=== PATIENT | female | born 1985 | race Caucasian/White ===

== ENCOUNTER 2017-04-20 00:44 | Inpatient (IN) ==
[2017-04-20] MEDS ORDERED: Vancomycin 1,250 MG in D5% in Water 250 ML IVPB STA (01:05)
--- NOTE | 2017-04-20 01:12 | Emergency Department Note ---
Disposition Clinical Impression: Abscess of hand Disposition: Admitted As Inpatient Condition: Good Referrals: Matias Ochoa MD [Primary Care Provider] - Forms: ED Satisfaction Letter Skin/Abscess/FB HPI Chief complaint: ED Skin/Abscess/Foreign Body Stated complaint: Abscess R Hand Time Seen by Provider: 04/20/17 00:57 Source: patient Limitations: no limitations Nursing Notes Reviewed: Yes Vital Signs Reviewed: Yes HPI Narrative: Patient presents for evaluation of right hand abscess. Patient states 3 days ago she was cutting a callus on her hand with some nail clippers. She states that the infections continued to get worse. Patient presents today secondary to the overall size and associated pain. Patient states that she has had one abscess on the left forearm prior. Mother states that she has a frequent history of cellulitis. Patient adamantly denies any IV drug use either now or previously. Mild chills but no overt fever. Previous Rx's Medication Instructions Recorded Benzonatate [Tessalon] 100 mg PO TID PRN #20 capsule 04/26/15 Levofloxacin [Levaquin] 500 mg PO DAILY #14 tablet 04/26/15 Clindamycin HCl [Cleocin HCl] 450 mg PO TID #32 cap 12/05/15 Naproxen [Naprosyn] 500 mg PO BID PRN #20 tablet 01/27/17 Allergies Allergy/AdvReac Type Severity Reaction Status Date / Time Penicillins AdvReac Hives Verified 04/20/17 00:50 Review of Systems: CONSTITUTIONAL: chills No weight loss, fever, weakness or fatigue. HEENT: Eyes: No visual changes. Ears, Nose, Throat: No hearing loss, difficulty talking or unable to swallow. SKIN: No rash or itching. CARDIOVASCULAR: No chest pain, chest pressure or chest discomfort. No palpitations or edema. RESPIRATORY: No shortness of breath, cough or sputum. GASTROINTESTINAL: No anorexia, nausea, vomiting or diarrhea. No abdominal pain or blood. GENITOURINARY: No burning on urination or hematuria. NEUROLOGICAL: No headache, dizziness, syncope, paralysis, ataxia, numbness or tingling in the extremities. No change in bowel or bladder control. MUSCULOSKELETAL: right hand pain Past Medical History - Past Medical History Medical history: Reports: no medical history Surgical history: Reports: Psychiatric history: Reports: anxiety, bipolar, depression - Social History Smoking Status: Current every day smoker Smokeless Tobacco Status: No Alcohol use: Reports: none Drug use: Reports: none Physical Exam General appearance: NAD, conversant Eyes: anicteric sclerae, moist conjunctivae; no lid-lag; PERRL HENT: Atraumatic; oropharynx clear with moist mucous membranes Neck: Normal appearance; Trachea midline Chest: Symmetrical chest rise; No respiratory distress Extremities: Right hand with significant abscess and swelling of the entirety of the palm. Patient swelling is starting to involve her fingers as well as her proximal wrist. Patient has range of motion at the wrist but limited range of motion to finger flexion or extension. Cap refill is less than 3 seconds. Sensation is intact in the distal fingers compared to the left. Skin: Normal temperature, turgor and texture; no rash, ulcers or subcutaneous nodules Psych: Appropriate mood and affect Neuro: Awake and alert - General Limitations: no limitations General appearance: alert, in no apparent distress Course - Reevaluation(s) Reevaluation #1: Discussed the severity of the case with the patient. The patient understands that she needs to go to the operating room. We will discuss with our hand surgeon at [facility] as she prefers to stay here. During her stay she has required pain medication as well as anxiety medication. Patient wants to go home to prepare her family for her hospitalization. After 1 dose of IV Ativan the patient uses her hand to do various tasks. Surprising given the amount of pain as well as impressive swelling. - Consultations Consultation #1: Discussed with Dr. Castle. Patient with low likelihood of compartment syndrome given sensation in fingers and symmetric cap refill. Patient will be able to be seen in the a.m. Patient should be given Zosyn and Vanc. Unfortunately the patient has a penicillin allergy that is hives. Patient given clindamycin instead. Consultation #2: Dr. No accepts. Requests urine drug screen. Pt received narcotics and benzo in the ED. No utility for obtaining at this time as she has already received the medications for acute pain and anxiety. Vital Signs Temperature 97.7 F 04/20/17 00:46 Pulse Rate 96 04/20/17 00:46 Respiratory Rate 20 04/20/17 00:46 Blood Pressure 127/76 04/20/17 00:46 O2 Sat by Pulse Oximetry 98 04/20/17 00:46 Temperature 97.7 F 04/20/17 00:46 Pulse Rate 86 04/20/17 03:27 Respiratory Rate 18 04/20/17 03:27 Blood Pressure 116/61 04/20/17 03:27 O2 Sat by Pulse Oximetry 95 04/20/17 03:27 Oxygen Delivery Oxygen Delivery Room Air Skin/Abscess/Foreign Body - Lab Data Result diagrams: 04/20/17 01:19 04/20/17 01:19 Lab Results 04/20/17 04/20/17 04/20/17 Range/Units 01:19 01:19 01:19 WBC 18.4 H (4.3-11.1) K/mcL RBC 4.06 (3.82-4.97) M/mcL Hgb 12.4 (11.5-15.4) g/dL Hct 37.8 (35.3-44.9) % MCV 93.1 (83.0-100.0) fL MCH 30.5 (28.0-33.3) pg MCHC 32.8 (31.6-35.5) g/dL RDW 13.1 (11.5-14.5) % Plt Count 165 (140-400) K/mcL MPV 12.7 H (9.4-12.4) fL Immature Gran % 0.4 (0-4) % Seg Neutrophils % 86.5 % Lymphocytes % 10.2 % Monocytes % 1.4 % Eosinophils % 1.0 % Basophils % 0.5 % Neutrophils # 15.9 H (1.6-8.9) K/mcL Lymphocytes # 1.9 (0.6-4.6) K/mcL Monocytes # 0.3 (0.0-1.3) K/mcL Eosinophils # 0.2 (0.0-0.6) K/mcL Basophils # 0.1 (0.0-0.2) K/mcL ESR 81 H (0-15) mm/hr Sodium 138 (136-145) mEq/L Potassium 3.5 (3.5-4.5) mEq/L Chloride 105 (98-109) mEq/L Carbon Dioxide 24 (19-29) mEq/L BUN 10 (7-20) mg/dL Creatinine 0.78 (0.57-1.11) mg/dL Est GFR ( Amer) > 60 (> 60) Est GFR (Non-Af Amer) > 60 (> 60) BUN/Creatinine Ratio 13 (6-26) Glucose 123 H (70-99) mg/dL Calculated Osmolality 286 (280-300) Lactic Acid (0.5-2.2) mmol/L Calcium 8.5 L (8.6-10.8) mg/dL Creatine Kinase 202 H (29-168) Units/L C-Reactive Protein 122 H (Less than 5) mg/L 04/20/ Range/Units 03:43 WBC (4.3-11.1) K/mcL RBC (3.82-4.97) M/mcL Hgb (11.5-15.4) g/dL Hct (35.3-44.9) % MCV (83.0-100.0) fL MCH (28.0-33.3) pg MCHC (31.6-35.5) g/dL RDW (11.5-14.5) % Plt Count (140-400) K/mcL MPV (9.4-12.4) fL Immature Gran % (0-4) % Seg Neutrophils % % Lymphocytes % % Monocytes % % Eosinophils % % Basophils % % Neutrophils # (1.6-8.9) K/mcL Lymphocytes # (0.6-4.6) K/mcL Monocytes # (0.0-1.3) K/mcL Eosinophils # (0.0-0.6) K/mcL Basophils # (0.0-0.2) K/mcL ESR (0-15) mm/hr Sodium (136-145) mEq/L Potassium (3.5-4.5) mEq/L Chloride (98-109) mEq/L Carbon Dioxide (19-29) mEq/L BUN (7-20) mg/dL Creatinine (0.57-1.11) mg/dL Est GFR ( Amer) (> 60) Est GFR (Non-Af Amer) (> 60) BUN/Creatinine Ratio (6-26) Glucose (70-99) mg/dL Calculated Osmolality (280-300) Lactic Acid 1.0 (0.5-2.2) mmol/L Calcium (8.6-10.8) mg/dL Creatine Kinase (29-168) Units/L C-Reactive Protein (Less than 5) mg/L
[2017-04-20 01:27] LABS: Basophils # 0.1 K/mcL (0.0-0.2); Basophils % 0.5 %; Eosinophils # 0.2 K/mcL (0.0-0.6); Hematocrit 37.8 % (35.3-44.9); Hemoglobin 12.4 g/dL (11.5-15.4); Immature Granulocytes % 0.4 % (0-4); Lymphocytes # 1.9 K/mcL (0.6-4.6); Lymphocytes % 10.2 %; Mean Corpuscular HGB Conc 32.8 g/dL (31.6-35.5); Mean Corpuscular Hemoglobin 30.5 pg (28.0-33.3); Mean Corpuscular Volume 93.1 fL (83.0-100.0); Mean Platelet Volume 12.7 fL (9.4-12.4); Monocytes # 0.3 K/mcL (0.0-1.3); Monocytes % 1.4 %; Neutrophils # 15.9 K/mcL (1.6-8.9); Platelet Count 165 K/mcL (140-400); Red Blood Count 4.06 M/mcL (3.82-4.97); Red Cell Distribution Width 13.1 % (11.5-14.5); Segmented Neutrophils % 86.5 %
[2017-04-20 01:38] LABS: BUN/Creatinine Ratio 13 (6-26); Blood Urea Nitrogen 10 mg/dL (7-20); Calcium 8.5 mg/dL (8.6-10.8); Carbon Dioxide 24 mEq/L (19-29); Chloride 105 mEq/L (98-109); Glucose 123 mg/dL (70-99); Osmolality,Calculated 286 (280-300); Potassium 3.5 mEq/L (3.5-4.5); Sodium 138 mEq/L (136-145); eGFR For African Americans > 60 (> 60); eGFR For Non-African Americans > 60 (> 60)
--- NOTE | 2017-04-20 02:00 | Emergency Department Note ---
START Narrative - START START: I examined this patient and my medical decision-making was reviewed with the Resident Physician. I agree with the documented findings, disposition and treatment plan as described except to the extent set forth below. 32 yaer old female with is right hand dominant states that she has had a callulus on her right palm below the 2nd and 3rd base of the fingers and that she tried to clip it with a dirty box nailer and now over the past three days is has grown and is increasingly worse and drainge with swelling to the rest of her hand and pain with passive range of motion in addition to streaking of redness down her hand and arm. strong radial pulse, it is difficult to assess cap refill because of her nail poilish, and had glitter lotion on her hand which she states is her makeup. She denies drug abuse and heorin use although it appears that she has track winchester along her forearm bilaterally, although she denies it. My concern is for a needle in her wound or other necrotic pathogens. We will do CT and consult hand surgery. We will start vanco at this time and be admitted to either medicne at our facility or be transferred to another facilty with hand surgery.
[2017-04-20] MEDS ORDERED: *HR* FentaNYL (PF) 100 MCG/2 ML VIAL IVP ONE (02:03)
[2017-04-20 02:16] LABS: C-Reactive Protein 122 mg/L (Less than 5); Creatine Kinase 202 Units/L (29-168)
[2017-04-20] MEDS ORDERED: *HR* LORazepam 2 MG/ML VIAL IVP ONE ×3 (02:40→05:15)
[2017-04-20] MEDS ORDERED: *HR* LORazepam 2 MG/ML VIAL ONE ×2 (02:42→05:16)
[2017-04-20] MEDS ORDERED: Clindamycin 900 MG/50 ML 900 MG/50 ML IV.SOLN IVPB ONE (03:24)
[2017-04-20] MEDS ORDERED: Haloperidol Lactate 5 MG/ML VIAL IVP ONE ×2 (05:14→05:31)
[2017-04-20] MEDS ORDERED: Haloperidol Lactate 5 MG/ML VIAL ONE ×2 (05:15→05:31)
[2017-04-20] MEDS ORDERED: Nicotine 21 MG PATCH.TD24 TD STA (05:15)
--- NOTE | 2017-04-20 05:25 | Emergency Department Note ---
START Narrative - START START: Patient threatening to leave the emergency department and come back later in the day. Due to the patient's severity of her injury she does need antibiotics and surgical evaluation for possible surgery as the progression of this could worsen causing compartment syndrome. Possibility of going home presents potential complication of loss of limb as well as disability. The patient is not able to make decisions at this time secondary to her severe anxiety. She does have a history of bipolar as well as depression. She states she has been tried on Haldol as well as lithium without improvement. At this time we will give her Haldol and Ativan. The patient is now pink slipped. Mother is at bedside in agreement with overall course and plan.
--- NOTE | 2017-04-20 08:37 | Orthopedic Consult Note ---
Date of Encounter: 04/20/17 Time of Encounter: 08:00 Assessment and Plan (1) Abscess of hand Current Visit: Yes Status: Acute Patient has a deep palmar abscess at the base of the right long finger. The patient will be taken to the operating room for an incision and drainage today. This was discussed patient and she understands. Informed consent was obtained. The patient was taken to rotate either by Dr. Dc or myself. History of Present Illness Chief complaint: Right hand infection HPI: Ms. Shore is a 32 year old [id number] female who presents to the emergency room last night with increased swelling and pain of her right hand. The patient was cutting a callus from the palm of right hand with nail clippers 3 days ago, and hand progressively got more red hot and swollen. It was not significantly yesterday. The patient denies any fevers or chills at home. There was some concern of the patient's mental status less than pressure 1 to leave AMA. The patient has 2 young boys at home alone and want to get back with them. She denies any history of drug abuse. No significant medical history for diabetes. Past Med Surg Social Fam HX - Past Medical History Medical history: no medical history Psychiatric history: anxiety, bipolar, depression - Past Surgical History Surgical History: - Social History Smoking Status: Current every day smoker Smokeless Tobacco Status: No Alcohol use: none Drug use: none Medications and Allergies Celexa 60 PO DAILY 04/20/17 [History] 3 Allergy/AdvReac Type Severity Reaction Status Date / Time Penicillins AdvReac Hives Verified 04/20/17 00:50 All Systems Reviewed: A 10-system review of systems was performed and is negative for pertinent findings except as documented above in the HPI. Physical Exam - Constitutional Vitals: Temp Pulse Resp BP Pulse Ox 97.7 F 88 18 122/74 92 04/20/17 00:46 04/20/17 04:37 04/20/17 04:37 04/20/17 04:37 04/20/17 04:37 General appearance IM: cooperative (The patient is somewhat drowsy secondary to medications, but she is arousable), A&O X 3, answers questions appropriately - Wrist & Hand right Location of pain: volar hand Wrist pain modifiers: with motion Wound/scarring location: Swelling on dorsum of hand. Signifi swelling on distal palm at base of LF Tenderness with palpation: volar hand (2 similar raised swelling this long finger, mild erythema, violaceous center. Compartments are soft. Able to passively flex the digits without significant pain. Sensation intact fingertips. Capillary refill less than 2 seconds. Radial pulse 2+. No streaking of erythema into foream.) Full ROM: wrist: yes Results - Labs Result Diagrams: 04/20/17 01:19 04/20/17 01:19 Labs: Abnormal lab results WBC 18.4 K/mcL (4.3-11.1) H 04/20/17 01:19 MPV 12.7 fL (9.4-12.4) H 04/20/17 01:19 Neutrophils # 15.9 K/mcL (1.6-8.9) H 04/20/17 01:19 ESR 81 mm/hr (0-15) H 04/20/17 01:19 Glucose 123 mg/dL (70-99) H 04/20/17 01:19 Calcium 8.5 mg/dL (8.6-10.8) L 04/20/17 01:19 Creatine Kinase 202 Units/L (29-168) H 04/20/17 01:19 C-Reactive Protein 122 mg/L (Less than 5) H 04/20/17 01:19 All other labs normal. Consult Discharge Plan - Plan Referrals: Matias Ochoa MD [Primary Care Provider] -
[2017-04-20] MEDS ORDERED: Mag Hydrox/Al Hydrox/Simeth 30 ML UDC PO PRN (08:38)
[2017-04-20] MEDS ORDERED: Ondansetron 4 MG/2 ML VIAL IVP PRN (08:38)
[2017-04-20] MEDS ORDERED: MOM Conc 10 ML UD.LIQ PO PRN (08:38)
[2017-04-20] MEDS ORDERED: Naloxone 0.4 MG/ML INJ IVP PRN (08:38)
[2017-04-20] MEDS ORDERED: Acetaminophen 325 MG TABLET PO PRN (08:38)
[2017-04-20] MEDS ORDERED: *HR* Morphine 2 MG/ML SYRINGE IVP PRN (08:42)
--- NOTE | 2017-04-20 08:44 | Internal Med History&Physical ---
Date of Encounter: 04/20/17 Time of Encounter: 07:45 Assessment and Plan (1) Abscess of right hand excluding fingers and thumb Current visit: Yes Status: Acute Pt with acute abscess R hand. IV Clinda and Vanc ordered. Plan is for OR later today. Pt is competent at this time to consent and understands the issues. Cultures pending. (2) Bipolar 1 disorder Current visit: Yes Status: Chronic Pt takes Celexa 60mg daily. Restarted today. She was pink slipped in ED last night but at this time I feel the patient is competent and understands risks/ benefits of her need for treatment. Will rescind the pink slip at this time. (3) Tobacco abuse Current visit: Yes Status: Chronic Cessation counselling. PRN Nicotine patch. Internal Medicine - H&P: HPI Admitted From: Emergency Dept Plans for Post Hospital Care: Home History of present illness: Ms. Shore is a 32 year old female with hx of bipolar disorder presented to ED last evening with swelling of R hand. 3 days prior she had worked on a callus on her hand with nail clippers. Area began to swell and became worse yesterday. In ED she was evaluated and admitted for further treatment. Apparently patient was agitated in ED and ultimately was given multiple medications and pink slipped. Currently she is somnolent but arousable. She is able to answer questions and appears to understand the gravity of her infection and the need to stay and go to OR. At this point I feel she is competent and willing to stay therefore I do not feel she need to be pink slipped anymore. She is currently high risk due to the need for IV abx and OR to debride abscess on her hand. Past Med Surg Social Fam HX - Past Medical History Source: patient Medical history: no medical history Psychiatric history: anxiety, bipolar, depression - Past Surgical History Surgical History: - Social History Smoking Status: Current every day smoker Smokeless Tobacco Status: No Alcohol use: none Drug use: none Current living situation: With Family Activity Level: Independent ambulation Internal Medicine - H&P: Meds Citalopram Hydrobromide [Citalopram HBr] 40 mg PO DAILY 04/20/17 [History] 3 Allergy/AdvReac Type Severity Reaction Status Date / Time Penicillins Allergy Hives Verified 04/20/17 08:45 All Systems PM: A 10-system review of systems was performed and is negative for pertinent findings except as documented above in the HPI. - Constitutional Constitutional: as per HPI, no chills, no fever(s) - EENT Eyes: no dry eye, no loss of peripheral vision, no pain Ears: no decreased hearing Nose, mouth and throat: dry mouth, no mouth lesions, no nasal obstruction, no sinus pain - Cardiovascular Cardiovascular ROS IM: no chest pain, no dyspnea, no dyspnea on exertion, no palpitations - Respiratory Respiratory: no dyspnea, no dyspnea on exertion, no chest congestion, no pain with cough - Gastrointestinal Gastrointestinal: no abdominal pain, no cramping, no diarrhea, no hematochezia, no melena - Genitourinary Genitourinary: no dysuria, no urinary hesitancy, no urinary incontinence, no urinary urgency - Musculoskeletal Musculoskeletal ROS IM: other, no arthralgias Additional comments: R hand swollen - Integumentary Integumentary IM: as per HPI, new lesions - Neurological Neurological ROS: no abnormal gait, no dizziness, no loss of vision - Psychiatric Psychiatric: anxiety, depression, mood swings - Endocrine Endocrine IM: no cold intolerance, no heat intolerance - Hematologic/Lymphatic Hematologic/Lymphatic: no easy bleeding - Allergic/Immunologic Allergic/Immunologic: no throat swelling, no itchy eyes - Constitutional Vitals: Temp Pulse Resp BP Pulse Ox 97.7 F 88 18 122/74 92 04/20/17 00:46 04/20/17 04:37 04/20/17 04:37 04/20/17 04:37 04/20/17 04:37 General appearance: Present: A&O X 3, answers questions appropriately Exam: Somnolent still but able to answer questions appropriately. - Head Head exam: Present: atraumatic, normocephalic - Eye Eye exam: Present: EOMI, PERRL, conjuntiva pink - ENT ENT exam: Present: mucous membranes dry - Neck Neck exam general surgery: Absent: lymphadenopathy, thyromegaly - Respiratory Respiratory exam: Present: decreased breath sounds, CTAB - Cardiovascular Cardiovascular exam: Present: RRR. Absent: systolic murmur, tachycardia - GI/Abdominal GI/Abdominal exam: Present: normal bowel sounds, soft. Absent: mass, tenderness - Extremities Exam Extremities exam: Present: normal capillary refill, radial pulses palpable and symmetrical Additional comments: R hand swollen and erythematous. Large abscess area present on the palm of her hand. Painful to touch. Able to move fingers. No numbness. Pulses palpable bilaterally. - Neurological Exam Neurological exam: Present: alert, oriented X3 - Psychiatric Psychiatric exam: Present: anxious - Skin Skin exam: Present: dry, erythema, warm Internal Med - H&P Results - Labs CBC & Chem 7: 04/20/17 01:19 04/20/17 01:19
[2017-04-20] MEDS ORDERED: Vancomycin 1,250 MG in D5% in Water 250 ML IVPB SCH (09:00)
[2017-04-20] MEDS ORDERED: Lidocaine -MPF 2% 2 ML VIAL ONE (10:10)
[2017-04-20] MEDS ORDERED: *HR* Midazolam HCl 2 MG/2 ML VIAL ONE (10:10)
[2017-04-20] MEDS ORDERED: Dexamethasone 4 MG/ML VIAL ONE (10:10)
[2017-04-20] MEDS ORDERED: Ondansetron 4 MG/2 ML VIAL ONE (10:10)
[2017-04-20] MEDS ORDERED: *HR* Propofol 200 MG/20 ML VIAL IVP ONE (10:10)
[2017-04-20] MEDS ORDERED: *HR* FentaNYL (PF) 100 MCG/2 ML VIAL ONE (10:10)
--- NOTE | 2017-04-20 10:35 | Anesthesia Evaluation PreOp ---
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: Other (anxiety, bipolar, depression) Other Medical History: Denies Any Significant HX Anesthesia History: No Prior Anesthetic Complications, Past Anesthesia (c/s) : No Test: Negative (04/20/2017) Alcohol Use: none Drug use: none Medications and Allergies Citalopram Hydrobromide [Citalopram HBr] 40 mg PO DAILY 04/20/17 [History] 3 Allergy/AdvReac Type Severity Reaction Status Date / Time Penicillins Allergy Hives Verified 04/20/17 08:45 - Meds/Allergy Pre-op Review Medications Reviewed: Yes Allergies Reviewed: Yes Beta Blockers on Current Med List: No Anesthesia Results - Labs 04/20/17 01:19 04/20/17 01:19 Laboratory Tests 04/08/14 19:33 Urine Opiates Screen Positive H U Benzodiazepines Scrn Positive H U Marijuana (THC) Screen Positive H Anesthesia Exam O2 Sat Height 1.63 m Weight 79.379 kg O2 Sat by Pulse Oximetry 96 O2 Sat by Pulse Oximetry 92 O2 Sat by Pulse Oximetry 95 O2 Sat by Pulse Oximetry 98 O2 Sat by Pulse Oximetry 98 Vital Signs Temp Pulse Resp BP Pulse Ox 97.7 F 96 20 127/76 98 04/20/17 00:46 04/20/17 00:46 04/20/17 00:46 04/20/17 00:46 04/20/17 00:46 Vital Signs/O2 Sat, Most Current Temp Pulse Resp BP Pulse Ox 97.7 F 79 17 112/69 96 04/20/17 09:02 04/20/17 09:02 04/20/17 09:02 04/20/17 09:02 04/20/17 09:02 Height: 5'4'' Weight: 175# NPO (# of Hours): > 8 nrs Pain Scale: 0 Pain Scale Used: Numeric (1 - 10) (.) - HEENT Pupil (Motor): Pupils equal, EOMI Mallampati: II Teeth: Normal Oral Opening: Greater than 3 - FACILITIES AND GROUNDS DIRECTOR LOC: Oriented FACILITIES AND GROUNDS DIRECTOR Motor: Normal RUE, Normal LUE, Normal RLE, Normal LLE, Normal Face [employer]ITIES AND GROUNDS DIRECTOR Sensory: Normal: RUE, LUE, RLE, LLE, Face - Cardiac Rhythm: Regular Murmur: None JVD: No Carotid Bruit: No - Pulmonary Breath Sounds: bilateral Clear Respiratory Effort: Symmetrical Anesthesia Assess/Plan ASA Score: 3 Modified [place] Scale for Level of Consciousness: Cooperative, oriented, and tranquil Anesthetic Plan: General Autologous Blood: Yes Monitoring Plan: Standard Monitors Recovery Plan: PACU
[2017-04-20] MEDS ORDERED: Albuterol 2.5 MG/3 ML NEBULIZER ONE (10:47)
[2017-04-20] MEDS ORDERED: Albuterol 2.5 MG/3 ML NEBULIZER IH ONE (10:48)
[2017-04-20] MEDS ORDERED: Lidocaine -MPF 4% 5 ML AMPUL ONE (10:49)
[2017-04-20] MEDS ORDERED: *HR* Succinylcholine 200 MG/10 ML VIAL IVP ONE (11:06)
--- NOTE | 2017-04-20 11:06 | Orthopedics Progress Note ---
Date of Encounter: 04/20/17 Time of Encounter: 11:04 Subjective Interval history: S: Resting in bed. Pain controlled to the right hand. O: Afebrile and vital signs are stable Inspection shows a large subcutaneous abscess on the palm just proximal to the long finger with overlying skin necrosis Tenderness to palpation in this area She can grossly flex and extend the digits The digits are sensate and well-perfused. A: Right hand abscess P: The recommendation is for I&D of the right hand in order to drain the infection. She did wish to proceed and consent has been obtained. Objective - Labs CBC & BMP: 04/20/17 01:19 04/20/17 01:19 Labs: Abnormal lab results WBC 18.4 K/mcL (4.3-11.1) H 04/20/17 01:19 MPV 12.7 fL (9.4-12.4) H 04/20/17 01:19 Neutrophils # 15.9 K/mcL (1.6-8.9) H 04/20/17 01:19 ESR 81 mm/hr (0-15) H 04/20/17 01:19 Glucose 123 mg/dL (70-99) H 04/20/17 01:19 Calcium 8.5 mg/dL (8.6-10.8) L 04/20/17 01:19 Creatine Kinase 202 Units/L (29-168) H 04/20/17 01:19 C-Reactive Protein 122 mg/L (Less than 5) H 04/20/17 01:19 Consult Discharge Plan - Plan Referrals: Matias Ochoa MD [Primary Care Provider] -
--- NOTE | 2017-04-20 11:41 | Orthopedic Operative Note ---
Date of procedure: 04/20/17 Procedure: OPERATIVE REPORT DATE OF PROCEDURE: 04/20/2017 SURGEON: Ramana Holm MD COVER OPERATOR(S): There are no assistants PREOPERATIVE DIAGNOSIS: Right hand abscess POSTOPERATIVE DIAGNOSIS: Right hand abscess PROCEDURE: Incision, drainage, irrigation, debridement of the right hand ANESTHESIA: And general anesthesia PREOPERATIVE ANTIBIOTICS: Vancomycin and clindamycin on the floor ESTIMATED BLOOD LOSS: 2 milliliters TOURNIQUET TIME: 8 minutes at 250 mmHg SPECIMENS: Pin swabs sent for aerobic and anaerobic cultures PREOPERATIVE NOTE AND INDICATIONS: This patient has a three-day history of a right hand infection developing into an abscess. She is admitted to the hospitalist. Recommendation was for drainage of the abscess to help treat the infection. The surgical plan was discussed with the patient. The risks, benefits, alternatives, and potential complications of this procedure were discussed with the patient including injury to veins, arteries, nerves, tendons, ligaments, and bone. Also discussed were the risks of infection, bleeding, pain, blood clots, the possible need for a blood transfusion, the possible need for further procedures, heart attack, stroke, and . All of this was explained in simple terms, and the patient verbalized understanding and wished to proceed. Consent was given to proceed with surgery. PROCEDURE: The patient was seen in the preoperative holding area where the identify and the consent were confirmed. The right hand was marked. Final questions were answered. The patient was brought back to the operating room and placed supine on the operating room table. A huddle was performed with the patient and all vital surgical team members confirming patient identity, the correct procedure, and the correct operative site. General anesthesia was administered. The right upper extremity was prepped and draped in the usual sterile fashion. A surgical time out was performed immediately preceding the incision with all personnel in the operating room to confirm patient identity, the correct operative site and extremity, correct radiographic studies, availability of appropriate surgical equipment, and agreement on the planned procedure. Was elevated and the tourniquet was inflated without exsanguination. An oblique incision was made over the abscess and this immediately decompressed copious amounts of grossly purulent material. This was swabbed for aerobic and anaerobic cultures. The necrotic margins of the skin were sharply excised. The infection did spread down deep to the flexor tendon sheath and necrotic fat was sharply excised. The flexor tendon sheath was opened and there is not any purulent material within. 3 L of fluid were copiously irrigated through the wound and the tourniquet was deflated. The wound was then packed open with quarter-inch iodoform packing. The instrument, sponge, and needle counts were correct after wound closure. POST OPERATIVE PLAN: Weight Bearing: Weightbearing as tolerated to the right upper extremity. DVT Prophylaxis: Ambulation Activity: Avoiding aggressive activities with right upper extremity. Wound Care: Daily dressing and packing changes Pain Control: Per the hospitalist Perioperative antibiotic prophylaxis: Maintain IV broad spectrum antibiotics until cultures guide further Follow Up: One week
[2017-04-20] MEDS ORDERED: *HR* HYDROmorphone 2 MG/ML SYRINGE ONE (11:46)
[2017-04-20] MEDS ORDERED: Ketorolac 30 MG/ML VIAL IVP ONE (11:54)
[2017-04-20] MEDS ORDERED: *HR* HYDROmorphone (PF) 1 MG/ML SYRINGE IVP PRN (11:54)
[2017-04-20] MEDS ORDERED: Acetaminophen IV 1,000 MG/100 ML INFUS..BTL IVPB ONE (11:56)
[2017-04-20] MEDS ORDERED: Ringers Solution, Lactated 1,000 ML IVC SCH (12:00)
[2017-04-20] MEDS ORDERED: Acetaminophen IV 1,000 MG/100 ML INFUS..BTL ONE (12:07)
[2017-04-20] MEDS ORDERED: Naloxone 0.4 MG/ML INJ IVP ONE (13:18)
[2017-04-20] MEDS: Naloxone 0.4 MG/ML INJ IVP PRN ×3 (13:27→13:42)
[2017-04-20] MEDS: 0.9 % Sodium Chloride 1,000 ML IVC SCH (15:04)
[2017-04-20] MEDS: Vancomycin 1,000 MG in D5% in Water 250 ML IVPB SCH (15:05)
[2017-04-20] MEDS: Clindamycin 600 MG/50 ML 600 MG/50 ML IV.SOLN IVPB SCH (16:29)
[2017-04-21] MEDS: Clindamycin 600 MG/50 ML 600 MG/50 ML IV.SOLN IVPB SCH ×3 (00:10→16:43)
[2017-04-21] MEDS: Vancomycin 1,000 MG in D5% in Water 250 ML IVPB SCH ×2 (02:01→14:01)
[2017-04-21 06:25] LABS: Mean Corpuscular HGB Conc 32.7 g/dL (31.6-35.5); Mean Corpuscular Hemoglobin 30.3 pg (28.0-33.3); Mean Corpuscular Volume 92.4 fL (83.0-100.0); Mean Platelet Volume 13.1 fL (9.4-12.4); Platelet Count 118 K/mcL (140-400); Red Blood Count 3.57 M/mcL (3.82-4.97); Red Cell Distribution Width 13.2 % (11.5-14.5)
[2017-04-21 06:26] LABS: Hemoglobin 10.8 g/dL (11.5-15.4)
[2017-04-21 06:35] LABS: BUN/Creatinine Ratio 8 (6-26); Calcium 8.1 mg/dL (8.6-10.8); Carbon Dioxide 24 mEq/L (19-29); Chloride 106 mEq/L (98-109); Glucose 79 mg/dL (70-99); Magnesium 1.9 mg/dL (1.6-2.6); Osmolality,Calculated 280 (280-300); Sodium 137 mEq/L (136-145); eGFR For African Americans > 60 (> 60); eGFR For Non-African Americans > 60 (> 60)
[2017-04-21 06:36] LABS: Blood Urea Nitrogen 5 mg/dL (7-20)
[2017-04-21 06:37] LABS: Potassium 3.7 mEq/L (3.5-4.5)
[2017-04-21] MEDS: Nicotine 21 MG PATCH.TD24 TD SCH ×2 (07:42→20:01)
[2017-04-21] MEDS: 0.9 % Sodium Chloride 1,000 ML IVC SCH (08:11)
--- NOTE | 2017-04-21 08:36 | Orthopedics Progress Note ---
Date of Encounter: 04/21/17 Time of Encounter: 08:34 Subjective Interval history: S: Resting in bed. Pain controlled to the right hand. O: Afebrile and vital signs are stable Dressings taken down and the packing removed. No gross purulence. Wound looks good. Moderate swelling to the hand She could grossly flex and extend the digits with limitation due to pain and swelling. The fingertips are all grossly sensate and well-perfused, and the radial artery pulse is 2+. A: Right hand abscess; postop day 1 after I&D P: Continue IV antibiotics for another 24 hours Continue elevation and daily dressing and packing changes. Work on motion exercises of the digits to reduce the risk of stiffness Objective Vital signs: Vital Signs Temp Pulse Resp BP Pulse Ox 04/21/17 04:07 99.4 F 90 17 98/49 93 04/21/17 00:43 98.9 F 86 17 101/63 94 04/20/17 20:09 98.7 F 91 18 131/70 96 04/20/17 17:30 97.6 F 78 16 105/67 94 04/20/17 16:20 98.4 F 71 15 105/64 98 04/20/17 15:13 97.3 F L 71 15 96/61 97 04/20/17 14:29 97.8 F 73 14 100/66 96 04/20/17 14:02 97.7 F 77 18 97/62 96 04/20/17 13:52 85 16 105/64 99 04/20/17 13:42 97.7 F 72 12 94/55 96 04/20/17 13:32 76 16 114/49 97 04/20/17 13:22 81 14 109/45 95 04/20/17 13:12 97.5 F L 78 16 100/54 96 04/20/17 13:02 82 16 105/61 97 04/20/17 12:52 81 14 105/76 96 04/20/17 12:42 97.8 F 86 16 104/59 97 04/20/17 12:32 86 16 110/66 95 04/20/17 12:22 85 16 110/68 93 04/20/17 12:12 99.0 F 86 14 104/60 95 04/20/17 12:02 85 14 117/68 95 04/20/17 11:52 86 16 100/69 92 04/20/17 11:42 98.2 F 104 18 107/76 95 Intake and Output 04/20/17 04/21/17 04/21/17 23:59 07:59 15:59 Intake Total 300 / 300 300 / 300 1000 / 1000 Output Total 500 / 500 500 / 500 Balance -200 / -200 300 / 300 500 / 500 Intake: IV Fluids 300 / 300 300 / 300 1000 / 1000 0.9 % Sodium Chloride 1,000 ML 1000 / 1000 @ 75 mls/hr IVC .[id number] [facility]EE[facility]N Rx #:[id number] Cleocin Premix 600 MG/50 ML 600 50 / 50 50 / 50 mg In 50 ml @ 50 mls/hr IVPB Q8HR KEENAN Rx#:[id number] Vancocin 1,000 MG In Dextrose 5 250 / 250 250 / 250 % 250 ML @ 167 mls/hr IVPB Q12H KEENAN Rx#:[id number] Output: Urine 500 / 500 500 / 500 - Labs CBC & BMP: 04/21/17 06:13 04/21/17 06:13 Labs: Abnormal lab results WBC 12.6 K/mcL (4.3-11.1) H 04/21/17 06:13 RBC 3.57 M/mcL (3.82-4.97) L 04/21/17 06:13 Hgb 10.8 g/dL (11.5-15.4) L D 04/21/17 06:13 Hct 33.0 % (35.3-44.9) L 04/21/17 06:13 Plt Count 118 K/mcL (140-400) L 04/21/17 06:13 MPV 13.1 fL (9.4-12.4) H 04/21/17 06:13 Neutrophils # 15.9 K/mcL (1.6-8.9) H 04/20/17 01:19 ESR 81 mm/hr (0-15) H 04/20/17 01:19 BUN 5 mg/dL (7-20) L 04/21/17 06:13 Calcium 8.1 mg/dL (8.6-10.8) L 04/21/17 06:13 Creatine Kinase 202 Units/L (29-168) H 04/20/17 01:19 C-Reactive Protein 122 mg/L (Less than 5) H 04/20/17 01:19 - VTE Documentation of Mechanical Device: Intermittent pneumatic compression device Consult Discharge Plan - Plan Referrals: Matias Ochoa MD [Primary Care Provider] -
[2017-04-21] MEDS: Ketorolac 30 MG/ML VIAL IVP PRN ×2 (09:41→20:23)
--- NOTE | 2017-04-21 10:46 | Internal Med Progress Note ---
Date of Encounter: 04/21/17 Time of Encounter: 10:44 - Assessment and plan (1) Abscess of right hand excluding fingers and thumb Current Visit: Yes Status: Acute Assessment and plan: POD #1 s/p I&D ortho on board and consultation appreciated continue IV abx pain control IV fluids (2) Right ankle injury Current Visit: Yes Status: Acute Assessment and plan: Ankle Xray reported avulsion injury adjacent to lateral malleolus and lateral talus with associated soft tissue swelling ortho follow up requested supportive care (Rest, ICE, comprresion, elevation) pain control Qualifiers: Encounter type: initial encounter Qualified Code(s): S99.911A - Unspecified injury of right ankle, initial encounter (3) Bipolar 1 disorder Current Visit: Yes Status: Chronic Assessment and plan: continue home meds (4) Tobacco abuse Current Visit: Yes Status: Chronic Assessment and plan: smoking cessation and nicotine supplementation therapy provided - Subjective Interval history: Patient seen and examined at bedside. Resting in bed and reports of pain being appropriately controlled with the pain medications. Reports of twisting her right foot/ankle prior to her hospitalization. Ankle Xray reported avulsion injury adjacent to lateral malleolus and lateral talus with associated soft tissue swelling. - Constitutional Vitals: Temp Pulse Resp BP Pulse Ox 98.7 F 77 15 97/67 92 04/21/17 08:44 04/21/17 08:44 04/21/17 08:44 04/21/17 08:44 04/21/17 08:44 General appearance: Present: A&O X 3, no acute distress, obese, answers questions appropriately - Head Head exam: Present: atraumatic, normocephalic - Eye Eye exam: Present: conjuntiva pink, sclera anicteric - Respiratory Respiratory exam: Present: CTAB. Absent: accessory muscle use, rales, rhonchi, wheezes - Cardiovascular Cardiovascular exam: Present: RRR, +S1, +S2. Absent: diastolic murmur, gallop, rubs, systolic murmur - GI/Abdominal GI/Abdominal exam: Present: normal bowel sounds, soft, no peritoneal signs. Absent: distended, tenderness - Extremities Exam Extremities exam: Present: warm, radial pulses palpable and symmetrical. Absent : calf tenderness, cyanotic, pedal edema Additional comments: right hand dressing intact right ankle edema noted at the site of injury - Neurological Exam Neurological exam: Present: alert, oriented X3 - Psychiatric Psychiatric exam: Present: normal affect, normal mood Internal Medicine: Result - Labs CBC & Chem 7: 04/21/17 06:13 04/21/17 06:13 Labs: Short CBC 04/21/17 Range/Units 06:13 WBC 12.6 H (4.3-11.1) K/mcL Hgb 10.8 L D (11.5-15.4) g/dL Hct 33.0 L (35.3-44.9) % Plt Count 118 L (140-400) K/mcL BMP 04/21/17 06:13 Sodium 137 Potassium 3.7 Chloride 106 Carbon Dioxide 24 BUN 5 L Creatinine 0.63 Glucose 79 Calcium 8.1 L - Impressions Impressions Ankle X-Ray 04/21/17 07:54 IMPRESSION: Small acute avulsion injury adjacent to the lateral malleolus and lateral talus. Associated soft tissue swelling. D/ / 04/21/2017 10:02:17 Albert Gil MD / aKtarina Duffy Interpreting Provider: Albert Gil MD - VTE Documentation of Mechanical Device: Intermittent pneumatic compression device Consult Discharge Plan - Plan Referrals: Matias Ochoa MD [Primary Care Provider] -
[2017-04-22] MEDS: *HR* OxyCODONE Immed Rel 5 MG TABLET PO PRN ×2 (01:03→07:43)
[2017-04-22] MEDS: Clindamycin 600 MG/50 ML 600 MG/50 ML IV.SOLN IVPB SCH ×2 (01:03→08:33)
[2017-04-22 01:08] LABS: Basophils % 0.4 %; Eosinophils # 0.2 K/mcL (0.0-0.6); Eosinophils % 2.1 %; Hematocrit 32.1 % (35.3-44.9); Hemoglobin 10.6 g/dL (11.5-15.4); Immature Granulocytes % 0.5 % (0-4); Lymphocytes # 1.9 K/mcL (0.6-4.6); Mean Corpuscular Hemoglobin 30.5 pg (28.0-33.3); Mean Corpuscular Volume 92.2 fL (83.0-100.0); Mean Platelet Volume 13.4 fL (9.4-12.4); Monocytes # 0.5 K/mcL (0.0-1.3); Monocytes % 6.6 %; Neutrophils # 5.6 K/mcL (1.6-8.9); Platelet Count 115 K/mcL (140-400); Red Blood Count 3.48 M/mcL (3.82-4.97); Red Cell Distribution Width 13.2 % (11.5-14.5); Segmented Neutrophils % 67.4 %
[2017-04-22 01:28] LABS: BUN/Creatinine Ratio 14 (6-26); Blood Urea Nitrogen 8 mg/dL (7-20); Calcium 8.2 mg/dL (8.6-10.8); Carbon Dioxide 23 mEq/L (19-29); Chloride 109 mEq/L (98-109); Glucose 76 mg/dL (70-99); Magnesium 1.8 mg/dL (1.6-2.6); Osmolality,Calculated 283 (280-300); Phosphorous 3.3 mg/dL (2.3-4.7); Potassium 3.6 mEq/L (3.5-4.5); Sodium 138 mEq/L (136-145); eGFR For African Americans > 60 (> 60); eGFR For Non-African Americans > 60 (> 60)
[2017-04-22] MEDS ORDERED: Vancomycin 1,250 MG in D5% in Water 250 ML IVPB SCH (02:00)
[2017-04-22] MEDS: Ketorolac 30 MG/ML VIAL IVP PRN (04:56)
[2017-04-22 07:32] VITALS: BP 142/92
--- NOTE | 2017-04-22 07:50 | Orthopedics Progress Note ---
Date of Encounter: 04/22/17 Time of Encounter: 07:48 Subjective Interval history: S: Resting in bed. Pain controlled to the right hand. O: Afebrile and vital signs are stable Dressings taken down and the packing removed. No gross purulence. Wound looks good. Moderate swelling to the hand She could grossly flex and extend the digits with limitation due to pain and swelling. The fingertips are all grossly sensate and well-perfused, and the radial artery pulse is 2+. X-rays of ankle show sprain equivalent Cultures growing S. Aureus. A: Right hand abscess; postop day 2 after I&D P: Orthopedically stable for discharge Continue elevation and daily dressing and packing changes. Walking boot for the right lower extremity. Work on motion exercises of the digits to reduce the risk of stiffness Follow up in 1 week after discharge for wound check. Objective Vital signs: Vital Signs Temp Pulse Resp BP Pulse Ox 04/22/17 07:31 98.2 F 66 14 142/92 97 04/22/17 04:29 98.6 F 64 16 110/71 98 04/22/17 00:17 98.1 F 69 14 117/73 95 04/21/17 19:46 97.9 F 66 18 135/77 96 04/21/17 17:17 98.8 F 71 16 120/67 93 04/21/17 08:44 98.7 F 77 15 97/67 92 Intake and Output 04/21/17 04/21/17 04/22/17 15:59 23:59 07:59 Intake Total 1050 / 1050 300 / 300 150 / 150 Output Total 1200 / 1200 Balance -150 / -150 300 / 300 150 / 150 Intake: IV Fluids 1050 / 1050 300 / 300 0.9 % Sodium Chloride 1,000 ML 1000 / 1000 @ 75 mls/hr IVC .[id number] [facility] Rx #:[id number] Cleocin Premix 600 MG/50 ML 600 50 / 50 50 / 50 mg In 50 ml @ 50 mls/hr IVPB Q8HR [facility]EENAN Rx#:[id number] Vancocin 1,000 MG In Dextrose 5 250 / 250 % 250 ML @ 167 mls/hr IVPB Q12H [facility]EENAN Rx#:[id number] Oral 150 / 150 Output: Urine 1200 / 1200 Other: Meal Breakfast Percent of Meal Consumed 40% # Voids 1 1 2 # Urine Diapers 3 - Labs CBC & BMP: 04/22/17 00:53 04/22/17 00:53 Labs: Abnormal lab results RBC 3.48 M/mcL (3.82-4.97) L 04/22/17 00:53 Hgb 10.6 g/dL (11.5-15.4) L 04/22/17 00:53 Hct 32.1 % (35.3-44.9) L 04/22/17 00:53 Plt Count 115 K/mcL (140-400) L 04/22/17 00:53 MPV 13.4 fL (9.4-12.4) H 04/22/17 00:53 ESR 81 mm/hr (0-15) H 04/20/17 01:19 Calcium 8.2 mg/dL (8.6-10.8) L 04/22/17 00:53 Creatine Kinase 202 Units/L (29-168) H 04/20/17 01:19 C-Reactive Protein 122 mg/L (Less than 5) H 04/20/17 01:19 Vancomycin Trough 7.0 mcg/mL (10-20) L 04/22/17 00:53 - VTE Documentation of Mechanical Device: Intermittent pneumatic compression device Consult Discharge Plan - Plan Referrals: Matias Ochoa MD [Primary Care Provider] -
--- NOTE | 2017-04-22 11:17 | Discharge Summary ---
Date of Encounter: 04/22/17 Time of Encounter: 10:15 - Discharge Diagnosis (1) Abscess of right hand excluding fingers and thumb Priority: Primary Status: Acute (2) Right ankle injury Priority: Secondary Status: Acute Qualifiers: Encounter type: initial encounter Qualified Code(s): S99.911A - Unspecified injury of right ankle, initial encounter (3) Bipolar 1 disorder Priority: Secondary Status: Chronic (4) Tobacco abuse Priority: Secondary Status: Chronic - Discharge Medications Prescriptions: Clindamycin HCl [Cleocin HCl] 300 mg PO TID #21 cap Docusate [Colace] 100 mg PO BID PRN #20 capsule PRN Reason: Constipation HYDROcodone/Acet 5/325 mg [Dubberly 5-325 mg] 1 tab PO Q6H PRN #20 tab PRN Reason: moderate to severe pain Home Medications: Citalopram Hydrobromide [Citalopram HBr] 40 mg PO DAILY 04/20/17 [History] Clindamycin HCl [Cleocin HCl] 300 mg PO TID #21 cap 04/22/17 [Rx] Docusate [Colace] 100 mg PO BID PRN #20 capsule 04/22/17 [Rx] HYDROcodone/Acet 5/325 mg [Dubberly 5-325 mg] 1 tab PO Q6H PRN #20 tab 04/22/17 [Rx ] Allergies/Adverse Reactions: 3 Allergy/AdvReac Type Severity Reaction Status Date / Time Penicillins Allergy Hives Verified 04/20/17 08:45 Date of admission: 04/20/17 09:11 Primary care physician: Matias Ochoa MD Consults: 04/20/17 10:31 Consult to Ethanol Operations Manager [CONS] Routine Reason for SW Consult: discharge planning Discharging clinician: Miguelina Waite Anticipated date of discharge: 04/22/17 - Patient Status Disposition: Home, Self-Care Condition: Good Functional capacity at discharge: independent ambulation Overall status at discharge: patient is back to baseline - Discharge Instructions Follow Up With: Ramana Holm MD [Partnered Physician] - 04/26/17 3:30 pm Additional Instructions: Please follow up with your primary care physician and orthopedic surgery within one week after your discharge from the hospital. continue oral antibiotics as prescribed with meals. (Clindamycin may cause severe diarrhea, if this occurs, please stop using clindamycin and seek medical help immediately) Change dressing daily. resume home medications as prescribed by your primary care physician. - Diet and Activity Activity: resume usual activities as tolerated Diet: advance to your usual diet Hospital course: Ms. Shore is a 32 year old female with PMH of bipolar disorder who was admitted for management of right hand abscess and right ankle injury. She was seen by orthopedic surgery and underwent Incision, drainage, irrigation, debridement of the right hand. She was started on empiric abx therapy. she tolerated the procedure well and improved with abx therapy. Her leukocytosis resolved, pain is better controlled. Wound cultures are positive for MRSA sensitive to clindamycin. AT this time patient is hemodynamically stable. She will be discharged to home with oral antibiotics and follow up with orthopedic surgery and pcp. she state she will be able to do her dressing changes by herself and refused any additional home health services. She will receive a walking boot for right lower extremity prior to discharge. - Time Spent with Patient Total time spent providing and/or coordinating discharge services: Less than 30 minutes - Constitutional Vitals: Temp Pulse Resp BP Pulse Ox 98.2 F 66 14 142/92 97 04/22/17 07:31 04/22/17 07:31 04/22/17 07:31 04/22/17 07:31 04/22/17 07:31 General appearance: Present: A&O X 3, no acute distress, obese, answers questions appropriately - Head Head exam: Present: atraumatic, normocephalic - Eye Eye exam: Present: conjuntiva pink, sclera anicteric - Respiratory Respiratory exam: Present: CTAB. Absent: accessory muscle use, rales, rhonchi, wheezes - Cardiovascular Cardiovascular exam: Present: RRR, +S1, +S2. Absent: diastolic murmur, gallop, rubs, systolic murmur - GI/Abdominal GI/Abdominal exam: Present: normal bowel sounds, soft, no peritoneal signs. Absent: distended, tenderness - Extremities Exam Extremities exam: Present: warm, radial pulses palpable and symmetrical (right hand dressing intact, mild edema noted on right ankle). Absent: calf tenderness - Neurological Exam Neurological exam: Present: alert, oriented X3 - Psychiatric Psychiatric exam: Present: normal affect, normal mood - VTE Documentation of Mechanical Device: Intermittent pneumatic compression device
[2017-04-22] MEDS ORDERED: Aminoglycoside Consult 1 EACH MC ONE (11:43)
== END 2017-04-22 11:44 | disposition home or self-care (01) | DRG 364 ==
LOC: EMEROO 00:44 → 3NENU 00:44 → SUATTDRO 09:11
PROVIDERS: ADMIT Internal Medicine; ATTEND Internal Medicine